=== PATIENT | male | born 2000 | race Two or more races ===

== ENCOUNTER 2021-01-13 21:41 | Emergency (ER) | payer OTHER ==
[~2021-01-13] VITALS: Ht 170.2 cm; Wt 61.2 kg
[2021-01-14] MEDS ORDERED: KETOROLAC TROMETH 60MG/2ML VIAL IM ONE (02:15)
[2021-01-14 03:18] VITALS: BP 128/90
== END 2021-01-14 04:19 | disposition home or self-care (01) ==
LOC: ER 21:41
DX: S16.1XXA Strain of muscle, fascia and tendon at neck level, initial encounter (principal); S39.012A Strain of muscle, fascia and tendon of lower back, initial encounter; R51.9 Headache, unspecified; V49.59XA Passenger injured in collision with other motor vehicles in traffic accident, initial encounter; Y93.89 Activity, other specified; Y92.488 Other paved roadways as the place of occurrence of the external cause; Y99.8 Other external cause status
CPT/HCPCS: 70450; 72125; 96372; 99285; J1885